=== PATIENT | female | born 1960 | race Caucasian/White ===

== ENCOUNTER 2018-06-27 06:33 | Inpatient (IN) | payer OTHER ==
[2018-06-21 11:42] VITALS: BMI 35.6
[2018-06-27] VITALS (31 sets, daily range): BP systolic 100–148; BP diastolic 48–80; PULSE 50–89; RESP 14–24; Ht 157.5 cm; Wt 89.0 kg
[~2018-06-27] VITALS: Ht 157.5 cm; Wt 89.0 kg
--- NOTE | 2018-06-27 05:53 | HPN ---
Date/Time of Note Date/Time of Note DATE: 06/27/18 TIME: 05:53 Interval H&P Admission Note Pt. seen H&P reviewed: No system changes MARISOL PASTOR MD June 27, 2018 05:53
--- NOTE | 2018-06-27 05:59 | OPR ---
Date/Time of Note Date/Time of Note DATE: 06/27/18 TIME: 05:53 Operative Report Procedure Date: June 27, 2018 Preoperative Diagnosis Right shoulder massive rotator cuff tear with impingement Postoperative Diagnosis 1. Right shoulder rotator cuff tear (supraspinatus) 2. Right shoulder acromioclavicular joint arthritis 3. Right shoulder impingement Operation/Procedure Performed 1. Right shoulder rotator cuff reconstruction 2. Right shoulder open distal clavicle excision 3. Right shoulder open acromioplasty 4. Injection of PRP solution Surgeon see signature line Production Control Planner Narciso Roa MD Anesthesia Type: general Estimated Blood Loss: 10 - 50 ml's Transfusion none Specimen None Grafts/Implants See op note Complications none Pt Condition Post Procedure: stable Disposition: PACU Procedure Description ENDBAND SIZER SURGEON: Narciso Roa MD was asked to be present for this case at my request. Assistance was necessary as a result of the highly technical nature of this operation. When performing an open rotator cuff repair, it is critical to have a trained aquatics assistant department head who is an expert in handling the extremity and assisting the surgeon in tasks such as suture management and knot-tying techniques as well as implants. This assistance cannot be performed by a photovoltaic technician, as it is considered an integral part of the procedure and Narciso Roa MD should be compensated for their time. PROCEDURE IN DETAIL: Following the administration of general anesthesia supplemented with a peripheral nerve block for postoperative pain control, the patient was examined under anesthesia. Examination of the right shoulder revealed very significant stiffness including a forward flexion of about 90 degrees with 80 degrees of abduction and 20 degrees of internal rotation. A manipulation was then undertaken. Following the manipulation into forward flexion followed by abduction followed by external rotation the final rotation was 140 degrees of forward flexion with 110 degrees of abduction and 90 degrees of external rotation. Internal rotation was improved to about 30 degrees. The antecubital fossa was then prepped and 60 cc of blood were aspirated for the PRP preparation. The blood was given to the residential sales representative from the company. The patient was then placed in the beach chair position. Sterile prep and drape was then undertaken. A saber incision was then carried through the superior aspect exposing the deltotrapezial fascia. Incision was then made across the deltotrapezial fascia exposing the acromioclavicular joint and the anterior lateral shoulder. There is severe arthritic changes noted in the acromioclavicular joint. The distal clavicle was skeletonized for a distance of 10 mm followed by. The acromion was then evaluated. A very significant type III acromial morphology was noted particularly medially. An osteotome was then avoid to resect approximately 7 mm above the anterior and medial acromion flattening the area and completing the acromioplasty. The rotator cuff was then identified. The prior repair appeared to have failed. The area of the suture had avulsed and the tissue was minimally retracted. Good tissue was encountered. The cuff was then incised longitudinally in order to evaluate the intra-articular aspect. It appeared that the biceps tendon had been released. The rotator cuff edges were then cleared of devitalized tissue in the tuberosity decorticated. A 5.5 mm, triple loaded anchor was then placed through the tuberosity. All 6 sutures were then passed in a mattress fashion reconstructing the rotator cuff in an anatomic fashion. The previously prepared PRP solution was then injected into the area of the rotator cuff repair. The joint was then thoroughly irrigated, the deep tissues were approximated using #2 sutures through the acromion and distal clavicle into the deltoid in order to close the deltoid musculature in the watertight fashion. This was followed by closure of the deep layer using 2-0 Monocryl. The skin was closed using 4-0 Monocryl suture, and a Prenio dressing. An Ultrasling was then applied. The patient was awakened and transported to the recovery room in stable condition. Estimated blood loss for this procedure was 50 cc. MARISOL PASTOR MD June 27, 2018 05:59
[~2018-06-27 06:33] MED LIST: BUPIVACAINE 0.5% (SDV) 30 ML, morphine SULFATE (PF) 8 MG, EPINEPHrine 0.3 MG, KETOROLAC... IRR SCH; CEFAZOLIN 2 GM/50 ML (PMX) 50 ML IVPB ONE; DEXAMETHASONE 1 MG TAB PO ONE; GABAPENTIN 300 MG CAP PO ONE; TRANEXAMIC ACID 1GM/100ML(PMX) 100 ML IVPB ONE
[2018-06-27] MEDS ORDERED: LACTATED RINGER'S 1,000 ML IV SCH (07:25)
[2018-06-27] MEDS ORDERED: LISI10TA2 PO (07:39)
--- NOTE | 2018-06-27 07:45 | PREAC ---
Date/Time of Note Date/Time of Note DATE: 06/27/18 TIME: 07:43 Anesthesia Eval and Record Evaluation Time Pre-Procedure Interview DATE: 06/27/18 TIME: 07:43 Age 57 Sex female NPO: 8 hrs Preoperative diagnosis right rotator cuff tear Planned procedure right shoulder arthroscopy, decompression, rotator cuff reconstruction, distal clavicle excision Past Medical History Past Medical History: Includes Cardio: HTN Surgery & Anesthesia Issues No known issue Meds Anticoagulation: No Beta Usama within 24 hr: No Reason Beta Usama not given: Pt. not on B-Usama Reported Medications Lisinopril* (Lisinopril*) 10 Mg Tablet, 10 MG PO BID, #30 TAB 06/27/18 Current Medications Bupivacaine HCl/ Morphine Sulfate/ Epinephrine/ Ketorolac Tromethamine/ Clonidine HCl/ Sodium Chloride/ Vancomycin HCl INTRA-OP IRR ; Start 06/27/18 at 06:00 Lactated Ringer's 1,000 ml @ 0 mls/hr Q0M IV ; Start 06/27/18 at 07:25 Meds reviewed: Yes Allergies Coded Allergies: No Known Allergy (Unverified , 06/21/18) Allergies Reviewed: Yes Labs/Studies Labs Reviewed: Reviewed by anesthesiologist test: N/A Studies: ECG, CXR Pre-procedure Exam Last vitals Vital Signs Date Temp Pulse Resp B/P (MAP) Pulse Ox O2 O2 Flow FiO2 Time Delivery Rate 06/27/18 97.0 79 16 148/80 100 Room Air 07:35 (102) Airway: Adequate mouth opening, Adequate thyromental dist Mallampati: Mallampati I Teeth: Normal Lung: Normal Heart: Normal ASA Physical Status ASA physical status: 2 Emergency: None Planned Anesthetic General/MAC: LMA Nerve block: Brachial plexus (right) Planned Pain Management Single shot nerve block, Parenteral pain med Pre-operative Attestations Prior to commencing anesthesia and surgery, the patient was re-evaluated, there was verification of: *The patient's identity *The results of appropriate recent lab work and preoperative vital signs *The above evaluation not changing prior to induction *Anesthetic plan, risk benefits, alternative and complications discussed with patient/family; questions answered; patient/family understands, accepts and wishes to proceed. ADA OTERO June 27, 2018 07:45
[2018-06-27] MEDS ORDERED: FENTAnyl 50 MCG/ML VIAL ONE (07:47)
[2018-06-27] MEDS ORDERED: MIDAZOLAM 1 MG/ML 2 ML INJ ONE (07:47)
[2018-06-27] MEDS ORDERED: LIDOCAINE 2% (SDV) 5 ML INJ ONE (07:47)
[2018-06-27] MEDS ORDERED: BUPIVACAINE 0.5% (SDV) 30 ML INJ ONE (07:47)
[2018-06-27] MEDS ORDERED: ROCURONIUM 50 MG INJ ONE (07:52)
[2018-06-27] MEDS ORDERED: PROPOFOL 20 ML ONE (07:52)
[2018-06-27] MEDS ORDERED: CEFAZOLIN 1 GM INJ ONE (07:53)
[2018-06-27] MEDS ORDERED: LABETALOL HCL 20MG INJ ONE (10:26)
[2018-06-27] MEDS ORDERED: THROMBIN 5000 UNIT VIAL ONE (10:29)
[2018-06-27] MEDS ORDERED: POLYMYXIN/BACITRACIN 1L IRRIG ONE (10:29)
[2018-06-27] MEDS ORDERED: BUPIVACAINE 0.5%/EPI (SDV) 30 ML INJ ONE (10:29)
[2018-06-27] MEDS ORDERED: CA CHLORIDE (GM) 10% 10 ML INJ ONE (10:29)
[2018-06-27] MEDS ORDERED: TRANEXAMIC ACID 1GM/100ML(PMX) 100 ML ONE (10:33)
[2018-06-27] MEDS ORDERED: ONDANSETRON 4 MG INJ ONE (10:57)
[2018-06-27] MEDS ORDERED: DEXAMETHASONE 4 MG/ML 5 ML INJ ONE (10:57)
--- NOTE | 2018-06-27 11:18 | PDOCDIS ---
Discharge Instructions DIAGNOSIS Discharge Diagnosis Rotator cuff tear CONDITION [id number] Patient Condition: [id number] Good HOME CARE INSTRUCTIONS: [id number] Diet Instructions: [id number] Regular ACTIVITY: [id number] Activity Restrictions: [id number] Slowly Increase Activity Keep Limb Elevated [id number] Bathing Restrictions: [id number] Shower FOLLOW UP/APPOINTMENTS Follow-up Plan 2 weeks in the office SCHOOL/WORK RELEASE May return to School/Work with: With Restrictions School/Work Release Comment: 5 pound tabletop usage for 6 weeks MARISOL PASTOR MD June 27, 2018 11:18
[2018-06-27] MEDS ORDERED: NEOSTIGMINE 3 MG/3 ML SYRINGE ONE (11:21)
[2018-06-27] MEDS ORDERED: GLYCOPYRROLATE 0.4 MG INJ ONE (11:21)
[2018-06-27] MEDS ORDERED: NACL 0.9% 3 ML SYG IV SCH (11:30)
[2018-06-27] MEDS ORDERED: KETOROLAC 15 MG INJ IV PRN (11:30)
[2018-06-27] MEDS ORDERED: DIPHENHYDRAMINE 50 MG INJ IV PRN ×2 (11:30→12:00)
[2018-06-27] MEDS ORDERED: ONDANSETRON 4 MG INJ IV PRN ×2 (11:30→12:00)
[2018-06-27] MEDS ORDERED: HYDROmorphONE 1 MG/ML SYG IV PRN (11:30)
[2018-06-27] MEDS ORDERED: MAGNESIUM HYDROXIDE 30ML CUP PO PRN (11:30)
[2018-06-27] MEDS ORDERED: oxyCODONE 5 MG TAB PO PRN ×3 (11:30)
[2018-06-27] MEDS ORDERED: LOPERAMIDE 2 MG CAP PO PRN (11:30)
[2018-06-27] MEDS ORDERED: TRANEXAMIC ACID 1GM/100ML(PMX) 100 ML IVPB ONE (11:30)
[2018-06-27] MEDS ORDERED: ZOLPIDEM 5 MG TAB PO PRN (11:30)
--- NOTE | 2018-06-27 11:37 | PAC ---
Date/Time of Note Date/Time of Note DATE: 06/27/18 TIME: 11:37 Post-Anesthesia Notes Post-Anesthesia Note Last documented vital signs Vital Signs Date Temp Pulse Resp B/P (MAP) Pulse Ox O2 O2 Flow FiO2 Time Delivery Rate 06/27/18 97.0 79 16 148/80 100 Room Air 1137 (102) Activity: WNL Respiratory function: WNL Cardiovascular function: WNL Mental status: Baseline Pain reasonably controlled: Yes Hydration appropriate: Yes Nausea/Vomiting absent: Yes ADA OTERO June 27, 2018 11:37
[2018-06-27] MEDS: CEFAZOLIN 1 GM/50 ML (PMX) 50 ML IVPB SCH ×2 (11:52→20:19)
[2018-06-27] MEDS ORDERED: ALBUTEROL 0.083% (NEB) 2.5 MG/3 ML AMP HHN PRN (12:00)
[2018-06-27] MEDS ORDERED: FENTAnyl 50 MCG/ML VIAL IV PRN ×3 (12:00)
[2018-06-27] MEDS ORDERED: MEPERIDINE 25 MG INJ IV PRN (12:00)
[2018-06-27] MEDS ORDERED: hydrALAzine 20 MG INJ IV PRN (12:00)
[2018-06-27] MEDS ORDERED: KETOROLAC 30 MG INJ IV PRN (12:00)
[2018-06-27] MEDS ORDERED: OXYCODONE/ACETAMINOPHEN (5/325) TAB PO PRN ×2 (12:00)
[2018-06-27] MEDS ORDERED: EPHEDrine 25 MG/5 ML SYG IV PRN (12:00)
[2018-06-27] MEDS ORDERED: LABETALOL HCL 20MG INJ IV PRN (12:00)
[2018-06-27] MEDS ORDERED: METOCLOPRAMIDE 10 MG INJ IV PRN (12:00)
[2018-06-27] MEDS ORDERED: MIDAZOLAM 1 MG/ML 2 ML INJ IV PRN (12:00)
[2018-06-27] MEDS ORDERED: HYDROmorphONE 1 MG/5 ML IV SYRINGE IV PRN ×3 (12:00)
[2018-06-27] MEDS: DEXAMETHASONE 2 MG TAB PO SCH ×2 (16:30→18:00)
[2018-06-27] MEDS: ACETAMINOPHEN 500 MG TAB PO SCH ×2 (16:30→18:00)
--- NOTE | 2018-06-27 17:41 | CONS ---
Assessment/Plan Assessment/Plan Problems: (1) Essential (primary) hypertension Status: Chronic Comment: Cont. lisinopril and monitor BP while in house. (2) Complete rotator cuff tear Status: Resolved Comment: per primary team Qualifiers: (3) Localized osteoarthrosis, shoulder region Status: Resolved Comment: per primary team Qualifiers: Qualified Codes: M19.011 - Primary osteoarthritis, right shoulder (4) Aftercare following surgery of the musculoskeletal system Status: Acute Comment: Doing well POD#0 following R acromioplasty/distal clavicle resection and open rotator cuff repair. Pain control and PT per primary team. Will monitor for any medical issues and treat should they arise. Will follow with you. At this time, pt. cleared for d/c home when cleared by primary team. Consultation Date/Type/Reason Admit Date/Time June 27, 2018 at 06:33 Date of Consultation: June 27, 2018 Type of Consult Medicine Reason for Consultation Medical Management Requesting Provider: MARISOL PASTOR MD Date/Time of Note DATE: 06/27/18 TIME: 17:34 Hx of Present Illness 57 y/o H F w/ h/o HTN in [facility] until 1 1/2 y. ago was moving sofa at work. Cutler tear in R shoulder. 1 year ago had arthroscopic rotator cuff repair. However, this has been ineffective. Now s/p manipulation under anesthesia and open rotat or cuff repair, distal clavicle excision, and acromioplasty. POD#0 and doing well. Constitutional: no complaints Eyes: no complaints ENT: no complaints Respiratory: no complaints Cardiovascular: no complaints Gastrointestinal: no complaints Genitourinary: no complaints Musculoskeletal: bone/joint pain (R shoulder) Neurologic: no complaints Past Medical History Medical History: hypertension Home Meds Reported Medications Lisinopril* (Lisinopril*) 10 Mg Tablet, 10 MG PO BID, #30 TAB 06/27/18 Medications Current Medications Bupivacaine HCl/ Morphine Sulfate/ Epinephrine/ Ketorolac Tromethamine/ Clonidine HCl/ Sodium Chloride/ Vancomycin HCl INTRA-OP IRR ; Start 06/27/18 at 06:00 Lactated Ringer's 1,000 ml @ 0 mls/hr Q0M IV Last administered on 06/27/18at 08:01; Admin Dose 20 MLS/HR; Start 06/27/18 at 07:25 Lisinopril (Zestril) 10 mg BID PO ; Start 06/27/18 at 21:00 Cefazolin Sodium 50 ml @ 100 mls/hr Q8H IVPB Last administered on 06/27/18at 11:52; Admin Dose 100 MLS/HR; Start 06/27/18 at 11:30; Stop 06/28/18 at 03:59 Senna/Docusate Sodium (Senokot-S) 1 tab BID PO ; Start 06/27/18 at 21:00 Simethicone (Mylicon) 80 mg TID PRN PO .GAS; Start 06/27/18 at 11:30 Magnesium Hydroxide (Milk Of Mag) 30 ml BID PRN PO .CONSTIPATION; Start 06/27/18 at 11:30 Loperamide HCl (Imodium Cap) 2 mg Q6H PRN PO .DIARRHEA; Start 06/27/18 at 11:30 Dexamethasone (Decadron) 2 mg Q6 PO Last administered on 06/27/18at 16:30; Admin Dose 2 MG; Start 06/27/18 at 12:00; Stop 06/28/18 at 06:01 Gabapentin (Neurontin) 300 mg HS PO ; Start 06/27/18 at 21:00 Acetaminophen (Tylenol Tab) 500 mg Q6 PO Last administered on 06/27/18at 16:30; Admin Dose 500 MG; Start 06/27/18 at 12:00 Oxycodone HCl (Roxicodone) 15 mg Q4H PRN PO .PAIN; Start 06/27/18 at 11:30 Oxycodone HCl (Roxicodone) 10 mg Q4H PRN PO .PAIN; Start 06/27/18 at 11:30 Oxycodone HCl (Roxicodone) 5 mg Q4H PRN PO .PAIN; Start 06/27/18 at 11:30 Hydromorphone HCl (Dilaudid) 1 mg Q4H PRN IV .BREAKTHROUGH PAIN; Start 06/27/18 at 11:30 Ketorolac Tromethamine (Toradol) 15 mg Q6H PRN IV .PAIN; Start 06/27/18 at 11:30 Ondansetron HCl (Zofran Inj) 4 mg Q6H PRN IV NAUSEA/VOMITING; Start 06/27/18 at 11:30 Diphenhydramine HCl (Benadryl) 25 mg Q6H PRN IV .PRURITUS; Start 06/27/18 at 11:30 Zolpidem Tartrate (Ambien) 10 mg HS PRN PO .INSOMNIA; Start 06/27/18 at 11:30 IV Flush (NS 3 ml) 3 ml per protocol IV ; Start 06/27/18 at 11:30 Hydromorphone HCl (Dilaudid) 0.2 mg PACU PRN IV MILD PAIN 1-3; Start 06/27/18 at 12:00; Stop 06/27/18 at 18:00 Hydromorphone HCl (Dilaudid) 0.4 mg PACU PRN IV MOD PAIN 4-6 Last administered on 06/27/18at 12:04; Admin Dose 0.4 MG; Start 06/27/18 at 12:00; Stop 06/27/18 at 18:00 Hydromorphone HCl (Dilaudid) 0.6 mg PACU PRN IV SEVERE PAIN 7-10 Last administered on 06/27/18at 11:58; Admin Dose 0.6 MG; Start 06/27/18 at 12:00; Stop 06/27/18 at 18:00 Fentanyl (Sublimaze) 25 mcg PACU ORDER PRN IV MILD PAIN 1-3; Start 06/27/18 at 12:00; Stop 06/27/18 at 18:00 Fentanyl (Sublimaze) 50 mcg PACU ORDER PRN IV MOD PAIN 4-6; Start 06/27/18 at 12:00; Stop 06/27/18 at 18:00 Fentanyl (Sublimaze) 75 mcg PACU ORDER PRN IV SEVERE PAIN 7-10; Start 06/27/18 at 12:00; Stop 06/27/18 at 18:00 Ketorolac Tromethamine (Toradol) 30 mg PACU ORDER PRN IV FOR PAIN AFTER IV NARCOTIC MED Last administered on 06/27/18at 11:58; Admin Dose 30 MG; Start 06/27/18 at 12:00; Stop 06/30/18 at 11:59 Oxycodone/ Acetaminophen (Percocet (5/ 325)) 1 tab PACU ORDER PRN PO .PAIN 1-5; Start 06/27/18 at 12:00; Stop 06/27/18 at 18:00 Oxycodone/ Acetaminophen (Percocet (5/ 325)) 2 tab PACU ORDER PRN PO .PAIN 6-10; Start 06/27/18 at 12:00; Stop 06/27/18 at 18:00 Ondansetron HCl (Zofran Inj) 4 mg PACU ORDER PRN IV NAUSEA/VOMITING; Start 06/27/18 at 12:00; Stop 06/27/18 at 18:00 Metoclopramide HCl (Reglan) 10 mg PACU ORDER PRN IV NAUSEA/VOMITING Last administered on 06/27/18at 11:59; Admin Dose 10 MG; Start 06/27/18 at 12:00; Stop 06/27/18 at 18:00 Labetalol HCl (Labetalol) 5 mg PACU ORDER PRN IV HIGH BLOOD PRESSURE; Start 06/27/18 at 12:00; Stop 06/27/18 at 18:00 Hydralazine HCl (Apresoline) 5 mg PACU ORDER PRN IV HIGH BLOOD PRESSURE; Start 06/27/18 at 12:00; Stop 06/27/18 at 18:00 Ephedrine Sulfate 5 mg PACU ORDER PRN IV BLOOD PRESSURE SUPPORT Last administered on 06/27/18at 14:45; Admin Dose 5 MG; Start 06/27/18 at 12:00; Stop 06/27/18 at 18:00 Albuterol (Proventil 0.083% (Neb)) 2.5 mg PACU ORDER PRN HHN .WHEEZING; Start 06/27/18 at 12:00; Stop 06/27/18 at 18:00 Meperidine HCl (Demerol) 25 mg PACU ORDER PRN IV .RIGORS; Start 06/27/18 at 12:00; Stop 06/27/18 at 18:00 Diphenhydramine HCl (Benadryl) 25 mg PACU ORDER PRN IV .PRURITUS Last administered on 06/27/18at 11:58; Admin Dose 25 MG; Start 06/27/18 at 12:00; Stop 06/27/18 at 18:00 Midazolam HCl (Versed) 0.5 mg PACU ORDER PRN IV .ANXIETY; Start 06/27/18 at 12:00; Stop 06/27/18 at 18:00 Allergies: Coded Allergies: No Known Allergy (Unverified , 06/21/18) Past Surgical History Past Surgical Hx: appendectomy, cholecystectomy, other (ZEINAB, R shoulder arthroscopy) Family History Significant Family History: cancer (liver, pancreatic), diabetes (mother), hypertension (mother) Social History b. 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 Alcohol Use: rarely Smoking Status: Never smoker Drug Use: none Exam/Review of Systems Exam Vitals VS - Last 72 Hours, by Label Date Temp Pulse Resp B/P (MAP) Pulse Ox O2 O2 Flow FiO2 Time Delivery Rate 06/27/18 76 15 114/57 99 Nasal 2.0 16:30 (76) Cannula 06/27/18 98.0 16:30 06/27/18 74 20 120/57 96 Nasal 2.0 16:00 (78) Cannula 06/27/18 74 15 126/57 96 Nasal 2.0 15:30 (80) Cannula 06/27/18 66 18 126/68 98 Nasal 2.0 15:22 (87) Cannula 06/27/18 63 20 119/55 99 Nasal 2.0 14:22 (76) Cannula 06/27/18 59 14 113/51 97 Nasal 2.0 13:31 (71) Cannula 06/27/18 62 16 116/58 97 Nasal 2.0 13:30 (77) Cannula 06/27/18 54 14 118/51 96 Nasal 2.0 13:15 (73) Cannula 06/27/18 98.0 64 19 120/56 96 Nasal 2.0 12:45 (77) Cannula 06/27/18 64 20 116/56 96 Nasal 2.0 12:40 (76) Cannula 06/27/18 50 16 115/54 96 Nasal 2.0 12:35 (74) Cannula 06/27/18 52 15 123/60 95 Nasal 2.0 12:25 (81) Cannula 06/27/18 59 17 130/56 95 Nasal 12:20 (80) Cannula 06/27/18 63 16 131/60 95 Nasal 12:15 (83) Cannula 06/27/18 62 16 121/57 95 Nasal 12:10 (78) Cannula 06/27/18 60 20 135/67 95 Nasal 12:05 (89) Cannula 06/27/18 62 21 143/62 95 Nasal 2.0 12:00 (89) Cannula 06/27/18 58 24 135/57 96 Nasal 2.0 11:55 (83) Cannula 06/27/18 60 20 100/52 96 Nasal 2.0 11:50 (68) Cannula 06/27/18 62 19 109/56 95 Nasal 2.0 11:45 (73) Cannula 06/27/18 60 23 111/48 97 Nasal 2.0 11:40 (69) Cannula 06/27/18 98.4 11:37 06/27/18 62 23 106/48 97 Nasal 2.0 11:35 (67) Cannula 06/27/18 98.3 60 18 105/56 99 Nasal 2.0 11:30 (72) Cannula 06/27/18 97.0 79 16 148/80 100 Room Air 07:35 (102) Vital Signs Date Temp Pulse Resp B/P (MAP) Pulse Ox O2 O2 Flow FiO2 Time Delivery Rate 06/27/18 76 15 114/57 99 Nasal 2.0 16:30 (76) Cannula 06/27/18 98.0 16:30 Constitutional: alert, oriented, obese Psych: no complaints, nl mood/affect Eyes: nl conjunctiva, EOMI, nl lids, nl sclera, PERRL ENMT: nl external ears & nose, mucosa pink and moist Neck: supple, non-tender; No bruits, No masses, No thyromegaly Respiratory: clear to auscultation, normal air movement Cardiovascular: regular rate and rhythm, nl pulses; No edema, No murmurs/extra sounds, No rub Gastrointestinal: soft, nl liver, spleen, non-tender, bowel sounds; No mass, No rebound or guarding Musculoskeletal: nl extremities to inspection Extremities: normal pulses; No cyanosis, No clubbing, No edema Neurological: 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 II-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 intact, nl mental status, nl speech, nl strength Medications Medication Current Medications Bupivacaine HCl/ Morphine Sulfate/ Epinephrine/ Ketorolac Tromethamine/ Clonidine HCl/ Sodium Chloride/ Vancomycin HCl INTRA-OP IRR ; Start 06/27/18 at 06:00 Lactated Ringer's 1,000 ml @ 0 mls/hr Q0M IV Last administered on 06/27/18at 08:01; Admin Dose 20 MLS/HR; Start 06/27/18 at 07:25 Lisinopril (Zestril) 10 mg BID PO ; Start 06/27/18 at 21:00 Cefazolin Sodium 50 ml @ 100 mls/hr Q8H IVPB Last administered on 06/27/18at 11:52; Admin Dose 100 MLS/HR; Start 06/27/18 at 11:30; Stop 06/28/18 at 03:59 Senna/Docusate Sodium (Senokot-S) 1 tab BID PO ; Start 06/27/18 at 21:00 Simethicone (Mylicon) 80 mg TID PRN PO .GAS; Start 06/27/18 at 11:30 Magnesium Hydroxide (Milk Of Mag) 30 ml BID PRN PO .CONSTIPATION; Start 06/27/18 at 11:30 Loperamide HCl (Imodium Cap) 2 mg Q6H PRN PO .DIARRHEA; Start 06/27/18 at 11:30 Dexamethasone (Decadron) 2 mg Q6 PO Last administered on 06/27/18at 16:30; Admin Dose 2 MG; Start 06/27/18 at 12:00; Stop 06/28/18 at 06:01 Gabapentin (Neurontin) 300 mg HS PO ; Start 06/27/18 at 21:00 Acetaminophen (Tylenol Tab) 500 mg Q6 PO Last administered on 06/27/18at 16:30; Admin Dose 500 MG; Start 06/27/18 at 12:00 Oxycodone HCl (Roxicodone) 15 mg Q4H PRN PO .PAIN; Start 06/27/18 at 11:30 Oxycodone HCl (Roxicodone) 10 mg Q4H PRN PO .PAIN; Start 06/27/18 at 11:30 Oxycodone HCl (Roxicodone) 5 mg Q4H PRN PO .PAIN; Start 06/27/18 at 11:30 Hydromorphone HCl (Dilaudid) 1 mg Q4H PRN IV .BREAKTHROUGH PAIN; Start 06/27/18 at 11:30 Ketorolac Tromethamine (Toradol) 15 mg Q6H PRN IV .PAIN; Start 06/27/18 at 11:30 Ondansetron HCl (Zofran Inj) 4 mg Q6H PRN IV NAUSEA/VOMITING; Start 06/27/18 at 11:30 Diphenhydramine HCl (Benadryl) 25 mg Q6H PRN IV .PRURITUS; Start 06/27/18 at 11:30 Zolpidem Tartrate (Ambien) 10 mg HS PRN PO .INSOMNIA; Start 06/27/18 at 11:30 IV Flush (NS 3 ml) 3 ml per protocol IV ; Start 06/27/18 at 11:30 Hydromorphone HCl (Dilaudid) 0.2 mg PACU PRN IV MILD PAIN 1-3; Start 06/27/18 at 12:00; Stop 06/27/18 at 18:00 Hydromorphone HCl (Dilaudid) 0.4 mg PACU PRN IV MOD PAIN 4-6 Last administered on 06/27/18at 12:04; Admin Dose 0.4 MG; Start 06/27/18 at 12:00; Stop 06/27/18 at 18:00 Hydromorphone HCl (Dilaudid) 0.6 mg PACU PRN IV SEVERE PAIN 7-10 Last administered on 06/27/18at 11:58; Admin Dose 0.6 MG; Start 06/27/18 at 12:00; Stop 06/27/18 at 18:00 Fentanyl (Sublimaze) 25 mcg PACU ORDER PRN IV MILD PAIN 1-3; Start 06/27/18 at 12:00; Stop 06/27/18 at 18:00 Fentanyl (Sublimaze) 50 mcg PACU ORDER PRN IV MOD PAIN 4-6; Start 06/27/18 at 12:00; Stop 06/27/18 at 18:00 Fentanyl (Sublimaze) 75 mcg PACU ORDER PRN IV SEVERE PAIN 7-10; Start 06/27/18 at 12:00; Stop 06/27/18 at 18:00 Ketorolac Tromethamine (Toradol) 30 mg PACU ORDER PRN IV FOR PAIN AFTER IV NARCOTIC MED Last administered on 06/27/18at 11:58; Admin Dose 30 MG; Start 06/27 at 12:00; Stop 06/30/18 at 11:59 Oxycodone/ Acetaminophen (Percocet (5/ 325)) 1 tab PACU ORDER PRN PO .PAIN 1-5; Start 06/27/18 at 12:00; Stop 06/27/18 at 18:00 Oxycodone/ Acetaminophen (Percocet (5/ 325)) 2 tab PACU ORDER PRN PO .PAIN 6-10; Start 06/27/18 at 12:00; Stop 06/27/18 at 18:00 Ondansetron HCl (Zofran Inj) 4 mg PACU ORDER PRN IV NAUSEA/VOMITING; Start 06/27/18 at 12:00; Stop 06/27/18 at 18:00 Metoclopramide HCl (Reglan) 10 mg PACU ORDER PRN IV NAUSEA/VOMITING Last administered on 06/27/18at 11:59; Admin Dose 10 MG; Start 06/27/18 at 12:00; Stop 06/27/18 at 18:00 Labetalol HCl (Labetalol) 5 mg PACU ORDER PRN IV HIGH BLOOD PRESSURE; Start 06/27/18 at 12:00; Stop 06/27/18 at 18:00 Hydralazine HCl (Apresoline) 5 mg PACU ORDER PRN IV HIGH BLOOD PRESSURE; Start 06/27/18 at 12:00; Stop 06/27/18 at 18:00 Ephedrine Sulfate 5 mg PACU ORDER PRN IV BLOOD PRESSURE SUPPORT Last admin istered on 06/27/18at 14:45; Admin Dose 5 MG; Start 06/27/18 at 12:00; Stop 06/27/18 at 18:00 Albuterol (Proventil 0.083% (Neb)) 2.5 mg PACU ORDER PRN HHN .WHEEZING; Start 06/27/18 at 12:00; Stop 06/27/18 at 18:00 Meperidine HCl (Demerol) 25 mg PACU ORDER PRN IV .RIGORS; Start 06/27/18 at 12:00; Stop 06/27/18 at 18:00 Diphenhydramine HCl (Benadryl) 25 mg PACU ORDER PRN IV .PRURITUS Last administered on 06/27/18at 11:58; Admin Dose 25 MG; Start 06/27/18 at 12:00; Stop 06/27/18 at 18:00 Midazolam HCl (Versed) 0.5 mg PACU ORDER PRN IV .ANXIETY; Start 06/27/18 at 12:00; Stop 06/27/18 at 18:00 SAMREEN PATTON MD June 27, 2018 17:41
[2018-06-27] MEDS: SENNA/DOCUSATE NA (8.6MG/50MG) TAB PO SCH (20:19)
[2018-06-27] MEDS: LISINOPRIL 10 MG TAB PO SCH (20:20)
[2018-06-27] MEDS ORDERED: GABAPENTIN 300 MG CAP PO SCH (21:00)
[2018-06-28] MEDS: ACETAMINOPHEN 500 MG TAB PO SCH ×3 (00:36→11:21)
[2018-06-28] MEDS: DEXAMETHASONE 2 MG TAB PO SCH ×2 (00:36→05:19)
[2018-06-28 02:00] VITALS: BP 126/63; PULSE 97; RESP 18
[2018-06-28] MEDS: CEFAZOLIN 1 GM/50 ML (PMX) 50 ML IVPB SCH (03:39)
[2018-06-28 05:00] VITALS: BP 127/69; PULSE 88; RESP 18
--- NOTE | 2018-06-28 05:54 | PN ---
Date/Time of Note Date/Time of Note DATE: 06/28/18 TIME: 05:52 Subjective Awke and alert no complaints Objective Vitals Vital Signs Date Temp Pulse Resp B/P (MAP) Pulse Ox O2 O2 Flow FiO2 Time Delivery Rate 06/28/18 97.7 97 18 126/63 95 02:00 (84) 06/27/18 Nasal 2.0 19:00 Cannula Intake and Output 06/27/18 06/27/18 06/28/18 1515:00 23:00 07:00 IntakeIntake Total 900 ml OutputOutput Total 10 ml BalanceBalance 890 ml Wound clean and dry. Neurologically intact. No signs DVT. Medications Medications Current Medications Bupivacaine HCl/ Morphine Sulfate/ Epinephrine/ Ketorolac Tromethamine/ Clonidine HCl/ Sodium Chloride/ Vancomycin HCl INTRA-OP IRR ; Start 06/27/18 at 06:00 Lactated Ringer's 1,000 ml @ 0 mls/hr Q0M IV Last administered on 06/27/18at 08:01; Admin Dose 20 MLS/HR; Start 06/27/18 at 07:25 Lisinopril (Zestril) 10 mg BID PO Last administered on 06/27/18at 20:20; Admin Dose 10 MG; Start 06/27/18 at 21:00 Senna/Docusate Sodium (Senokot-S) 1 tab BID PO Last administered on 06/27/18at 20:19; Admin Dose 1 TAB; Start 06/27/18 at 21:00 Simethicone (Mylicon) 80 mg TID PRN PO .GAS; Start 06/27/18 at 11:30 Magnesium Hydroxide (Milk Of Mag) 30 ml BID PRN PO .CONSTIPATION; Start 06/27/18 at 11:30 Loperamide HCl (Imodium Cap) 2 mg Q6H PRN PO .DIARRHEA; Start 06/27/18 at 11:30 Dexamethasone (Decadron) 2 mg Q6 PO Last administered on 06/28/18at 05:19; Admin Dose 2 MG; Start 06/27/18 at 12:00; Stop 06/28/18 at 06:01 Gabapentin (Neurontin) 300 mg HS PO Last administered on 06/27/18at 20:19; Admin Dose 300 MG; Start 06/27/18 at 21:00 Acetaminophen (Tylenol Tab) 500 mg Q6 PO Last administered on 06/28/18at 05:20; Admin Dose 500 MG; Start 06/27/18 at 12:00 Oxycodone HCl (Roxicodone) 15 mg Q4H PRN PO .PAIN; Start 06/27/18 at 11:30 Oxycodone HCl (Roxicodone) 10 mg Q4H PRN PO .PAIN; Start 06/27/18 at 11:30 Oxycodone HCl (Roxicodone) 5 mg Q4H PRN PO .PAIN; Start 06/27/18 at 11:30 Hydromorphone HCl (Dilaudid) 1 mg Q4H PRN IV .BREAKTHROUGH PAIN; Start 06/27/18 at 11:30 Ketorolac Tromethamine (Toradol) 15 mg Q6H PRN IV .PAIN; Start 06/27/18 at 11 :30 Ondansetron HCl (Zofran Inj) 4 mg Q6H PRN IV NAUSEA/VOMITING; Start 06/27/18 at 11:30 Diphenhydramine HCl (Benadryl) 25 mg Q6H PRN IV .PRURITUS; Start 06/27/18 at 11:30 Zolpidem Tartrate (Ambien) 10 mg HS PRN PO .INSOMNIA; Start 06/27/18 at 11:30 IV Flush (NS 3 ml) 3 ml per protocol IV ; Start 06/27/18 at 11:30 Ketorolac Tromethamine (Toradol) 30 mg PACU ORDER PRN IV FOR PAIN AFTER IV NARCOTIC MED Last administered on 06/27/18at 11:58; Admin Dose 30 MG; Start 06/27/18 at 12:00; Stop 06/30/18 at 11:59 VTE Prophylaxis Risk score (from Nsg)>0 risk: 7 SCD applied (from Nsg): Yes Lines/Catheters IV Catheter Type: Saline Lock Hart in Place: No Assessment/Plan Assessment/Plan Assessment: Status post open cuff repair Plan: Begin PT this morning discharge after MARISOL PASTOR MD June 28, 2018 05:54
--- NOTE | 2018-06-28 05:55 | DS ---
Date/Time of Note Date/Time of Note DATE: 06/28/18 TIME: 05:54 Discharge Summary Admission/Discharge Info Admit Date/Time June 27, 2018 at 06:33 Discharge Date/Time 06/28/2018 Discharge Diagnosis Rotator cuff tear Patient Condition: Good Hospital Course Admitted and underwent uncomplicated procedure. Postop day 1 discharge after therapy Home Meds Reported Medications Lisinopril* (Lisinopril*) 10 Mg Tablet, 10 MG PO BID, #30 TAB 06/27/18 Follow-up Plan 2 weeks in the office Primary Care Provider Not On Staff Doctor MARISOL PASTOR MD June 28, 2018 05:54
[2018-06-28 07:24] VITALS: BP 130/70; PULSE 90; RESP 19
[2018-06-28] MEDS: SENNA/DOCUSATE NA (8.6MG/50MG) TAB PO SCH (08:41)
[2018-06-28] MEDS: LISINOPRIL 10 MG TAB PO SCH (08:42)
== END 2018-06-28 11:55 | disposition home or self-care (01) | DRG 502 ==
LOC: REC 06:33 → MS1 18:05
PROVIDERS: ADMIT Orthopaedic Surgery; ATTEND Orthopaedic Surgery
PROC: 0RNJ0ZZ Release Right Shoulder Joint, Open Approach (ICD-10-PCS; 2018-06-27)
PROC: 0PB90ZZ Excision of Right Clavicle, Open Approach (ICD-10-PCS; 2018-06-27)
PROC: 0LM10ZZ Reattachment of Right Shoulder Tendon, Open Approach (ICD-10-PCS; principal; 2018-06-27 08:30)
DX: M75.101 Unspecified rotator cuff tear or rupture of right shoulder, not specified as traumatic (principal); M19.011 Primary osteoarthritis, right shoulder; M75.41 Impingement syndrome of right shoulder; I10 Essential (primary) hypertension
CPT/HCPCS: 97161; J0171; J0690; J0735; J1100; J1170; J1200; J1885; J2250; J2274; J2405; J2710; J2765; J3010; J3370